=== PATIENT | female | born 1965 | race Caucasian/White ===

== ENCOUNTER 2019-03-25 12:21 | Emergency (ER) | payer MEDICAID ==
[~2019-03-25] VITALS: Ht 162.6 cm; Wt 74.8 kg
--- NOTE | 2019-03-25 12:28 | NUR ---
[id number], COUGH x 4 DAYS, AFEBRILE, TAKES COLD MEDICINE AT NIGHT, TO ER BED 10, HOOKED TO MONITOR, CHANGED TO HOSP GOWN, PROVIDED W WARM BLANKET, ALMA BAILEY AT BEDSIDE
[2019-03-25] MEDS ORDERED: IPRATROPIUM NEB FS 0.5 MG/2.5 ML AMPUL.NEB ONE (12:38)
[2019-03-25] MEDS ORDERED: ALBUTEROL FS 2.5 MG/3 ML VIAL.NEB ONE (12:38)
[2019-03-25] MEDS ORDERED: predniSONE 20 MG TABLET ONE (12:41)
--- NOTE | 2019-03-25 12:46 | NUR ---
RT AT BEDSIDE FOR BREATHING TREATMENT
--- NOTE | 2019-03-25 12:46 | NUR ---
RAPID FLU SWAB SENT TO LAB
[2019-03-25] MEDS ORDERED: IPRATROPIUM NEB FS 0.5 MG/2.5 ML AMPUL.NEB NEB ONE (13:00)
[2019-03-25] MEDS ORDERED: ALBUTEROL FS 2.5 MG/3 ML VIAL.NEB CONTNEB ONE (13:00)
[2019-03-25] MEDS ORDERED: predniSONE 20 MG TABLET PO ONE (13:00)
--- NOTE | 2019-03-25 14:10 | NUR ---
RT AT BEDSIDE, EXPLAINED HOW TO USE INCENTIVE SPIROMETER, PATIENT VERBALIZED UNDERSTANDING
--- NOTE | 2019-03-25 14:13 | NUR ---
Patient discharged to home in stable condition. Written and verbal after care instructions given. Patient verbalizes understanding of instruction.
[2019-03-25 14:16] VITALS: BP 138/97
== END 2019-03-25 14:17 | disposition home or self-care (01) ==
LOC: ER 12:26
DX: J20.9 Acute bronchitis, unspecified (principal); E03.9 Hypothyroidism, unspecified
CPT/HCPCS: 71045; 87804 ×2; 94640; 94799; 99284; J7512